=== PATIENT | female | born 1965 | race Caucasian/White ===

== ENCOUNTER → 2016-07-01 | Outpatient (CLI) | payer OTHER | LOC: FIMAGING 12:58 | PROVIDERS: ATTEND Chiropractor | DX: M25.521 Pain in right elbow (principal); M25.551 Pain in right hip; M25.552 Pain in left hip ==

== ENCOUNTER → 2016-09-18 | Outpatient (CLI) | payer OTHER | LOC: CLAB 19:10 | DX: S92.592A Other fracture of left lesser toe(s), initial encounter for closed fracture (principal) | CPT/HCPCS: 73620-PO ==